=== PATIENT | male | born 1995 | race Caucasian/White ===

== ENCOUNTER 2018-06-01 21:08 | Emergency (ER) | payer BC ==
[~2018-06-01] VITALS: Ht 182.9 cm; Wt 88.5 kg
[2018-06-01 21:10] VITALS: BP_SYST 152
--- NOTE | 2018-06-01 21:15 | NUR ---
Patient to ER bed 3 to gown for evaluation. Side rails up. Report given to CHUCK HIGUERA.
--- NOTE | 2018-06-01 21:20 | NUR ---
Patient AOx4, ambulatory, presents to ER wtith complaint of LUQ abdominal pain radiating to left shoulder since noon yesterday. Patient states pain is 3/10 when standing and 8/10 when laying down. Patient also states SOB when laughing or laying down. Patient states no injury to site. No report of urinary symptoms.
--- NOTE | 2018-06-01 21:50 | NUR ---
ER MD Murphy at bedside for medical evaluation.
[2018-06-01] MEDS ORDERED: KETOROLAC TROMETHAMINE 60 MG/2 ML VIAL IM ONE (22:00)
--- NOTE | 2018-06-01 22:30 | NUR ---
No adverse reactions noted after medication administration. Will continue to monitor.
[2018-06-01 22:35] VITALS: BP_SYST 134
--- NOTE | 2018-06-01 22:35 | NUR ---
Patient given written and verbal discharge instructions and verbalizes understanding. ER MD discussed with patient the results and treatment provided. Patient in stable condition. ID arm band removed. Rx of [place] 5/325 and Motrin given. Patient educated on pain management and to follow up with PMD. Pain Scale 2/10 tolerable to patient. Opportunity for questions provided and answered. Medication side effect fact sheet provided.
== END 2018-06-01 22:35 | disposition home or self-care (01) ==
LOC: SED 21:08
DX: R10.12 Left upper quadrant pain (principal); M79.10 Myalgia, unspecified site; R03.0 Elevated blood-pressure reading, without diagnosis of hypertension
CPT/HCPCS: 96372; 99283; J1885